=== PATIENT | male | born 1970 | race Caucasian/White ===

== ENCOUNTER 2016-12-13 02:48 | Emergency (ER) | payer SELFPAY ==
[~2016-12-13] VITALS: Ht 182.9 cm; Wt 134.7 kg
[~2016-12-13 02:48] MED LIST: ALBU18HF2; PRED20TA
[2016-12-13 03:00] VITALS: BP 135/75
[2016-12-13] MEDS ORDERED: SODIUM BICARBONATE 5 ML VIAL TP ONE (03:30)
[2016-12-13] MEDS ORDERED: LIDOCAINE 1%-EPI 1:100,000 20 ML VIAL TP ONE (03:30)
== END 2016-12-13 04:11 | disposition home or self-care (01) ==
LOC: ER 02:50
DX: S21.112A Laceration without foreign body of left front wall of thorax without penetration into thoracic cavity, initial encounter (principal); W01.110A Fall on same level from slipping, tripping and stumbling with subsequent striking against sharp glass, initial encounter; Y93.89 Activity, other specified; Y92.89 Other specified places as the place of occurrence of the external cause; Y99.8 Other external cause status
CPT/HCPCS: 12002; 99283; A4606; A6402; Z7610

== ENCOUNTER 2016-12-25 02:16 | Emergency (ER) | payer SELFPAY ==
[~2016-12-25] VITALS: Ht 182.9 cm; Wt 89.4 kg
--- NOTE | 2016-12-25 02:29 | NUR ---
to bed 1 ambulatroy c/o L forearm laceration s/p trip and fall. pt denies ko. pt aaox4 no acute distress noted, resp even and unlabored. er md at bedside to eval pt with orders received.
[2016-12-25] MEDS ORDERED: LIDOCAINE HCL/PF 1% 30 ML SDV ONE (02:37)
--- NOTE | 2016-12-25 02:47 | NUR ---
er md at bedside for laceration repair.
[2016-12-25] MEDS ORDERED: LIDOCAINE HCL/PF 1% 30 ML VIAL TP ONE (03:00)
--- NOTE | 2016-12-25 03:10 | NUR ---
laceration repair done. pt tolerated procedure well.
[2016-12-25 03:17] VITALS: BP 127/75
--- NOTE | 2016-12-25 03:17 | NUR ---
Patient discharged to home in stable condition. Written and verbal after care instructions given. Patient verbalizes understanding of instruction. ambulatory with a steady gait
== END 2016-12-25 03:18 | disposition home or self-care (01) ==
LOC: ER 02:19
DX: S51.811A Laceration without foreign body of right forearm, initial encounter (principal); S61.411A Laceration without foreign body of right hand, initial encounter; F17.200 Nicotine dependence, unspecified, uncomplicated; W01.198A Fall on same level from slipping, tripping and stumbling with subsequent striking against other object, initial encounter; Y93.89 Activity, other specified; Y92.89 Other specified places as the place of occurrence of the external cause; Y99.9 Unspecified external cause status
CPT/HCPCS: 12002; 99283; A4606; A6402; J3490 ×2; Z7610

== ENCOUNTER 2017-01-04 10:45 | Emergency (ER) | payer SELFPAY ==
[~2017-01-04] VITALS: Ht 182.9 cm; Wt 89.4 kg
[2017-01-04 11:16] VITALS: BP 132/85
== END 2017-01-04 11:32 | disposition home or self-care (01) ==
LOC: ER 10:57
DX: S51.811D Laceration without foreign body of right forearm, subsequent encounter (principal); F17.200 Nicotine dependence, unspecified, uncomplicated
CPT/HCPCS: A4606; Z7502; Z7610

== ENCOUNTER 2024-02-27 02:22 | Emergency (ER) | payer SELFPAY ==
[~2024-02-27] VITALS: Ht 182.9 cm; Wt 108.9 kg
[2024-02-27] MEDS ORDERED: LIDOCAINE 1% INJ 50 ML MDV IJ ONE (04:14)
[2024-02-27] MEDS: LIDOCAINE 1% INJ 50 ML MDV IJ ONE (04:30)
[2024-02-27 05:13] VITALS: BP 132/70; TEMP 98.1; O2SAT 95
== END 2024-02-27 05:14 | disposition home or self-care (01) ==
LOC: ER 02:27
DX: S63.277A Dislocation of unspecified interphalangeal joint of left little finger, initial encounter (principal); R51.9 Headache, unspecified; R68.84 Jaw pain; F17.200 Nicotine dependence, unspecified, uncomplicated; Z87.828 Personal history of other (healed) physical injury and trauma; X50.9XXA Other and unspecified overexertion or strenuous movements or postures, initial encounter; Y93.89 Activity, other specified; Y92.89 Other specified places as the place of occurrence of the external cause; Y99.8 Other external cause status
CPT/HCPCS: 99284; 26770; 70486; 73130; 73120; J3490